=== PATIENT | male | born 1950 | race Caucasian/White ===

== ENCOUNTER 2017-04-24 00:53 | Emergency (ER) | payer MEDICARE, BC ==
--- NOTE | 2017-04-24 01:49 | EDM.PDOC ---
ED HPI GENERAL MEDICAL PROBLEM - General Chief Complaint: Back Pain or Injury Stated Complaint: BACK PAIN Time Seen by Provider: 04/24/17 01:25 Source of Information: Reports: Patient, Family History Limitations: Reports: No Limitations - History of Present Illness INITIAL COMMENTS - FREE TEXT/NARRATIVE: 66-year-old male with neuropathic type pain in the left flank for the past several weeks, a workup in the emergency room several days ago including a CT scan and labs was negative. Follow-up with his primary care provider led to another CT of the lumbar spine which was also reassuring. He has had extensive back surgery but it looks stable. He is on oxycodone, Flexeril, Valium, and gabapentin but tonight had a fiery stabbing pain in the left flank that was so intense he wasn't able to sleep and could hardly breathe. He's had no rash, fevers or chills, nausea or vomiting. He took a Percocet prior to coming into the emergency room and he is feeling better. No urinary symptoms. Onset: Sudden Location: Reports: Back Severity: Severe Associated Symptoms: Reports: No Other Symptoms Back Pain Score (Numeric/FACES): 7 - Related Data Allergies Allergy/AdvReac Type Severity Reaction Status Date / Time indomethacin [From Indocin] Allergy Cannot Verified 04/24/17 01:04 Remember indomethacin sodium Allergy Cannot Verified 04/24/17 01:04 [From Indocin] Remember methocarbamol [From Robaxin] Allergy Cannot Verified 04/24/17 01:04 Remember fluconazole [From Diflucan] AdvReac Nausea and Verified 04/24/17 01:04 Vomiting Home Meds: Home Meds Cyclobenzaprine [Flexeril] 10 mg PO TID PRN 09/20/13 [History] Naproxen [Naprosyn] 500 mg PO Q12HR 09/20/13 [History] Sildenafil [Viagra] 100 mg PO BEDTIME PRN 09/20/13 [History] Triamcinolone Acetonide [Kenalog 0.1% Crm] 15 gm .XX BID PRN 09/20/13 [History] amLODIPine [Norvasc] 5 mg PO DAILY 09/20/13 [History] Acetaminophen/oxyCODONE [Percocet 325-5 MG] 1 tab PO Q6H PRN 04/24/17 [History] Diazepam [Valium] 5 mg PO Q8H PRN 04/24/17 [History] Gabapentin [Neurontin] 600 mg PO TID 04/24/17 [History] Tamsulosin HCl [Tamsulosin HCl] 0.4 mg PO DAILY 04/24/17 [History] Valsartan [Valsartan] 40 mg PO DAILY 04/24/17 [History] Past Medical History HEENT History: Reports: Impaired Vision Cardiovascular History: Reports: Hypertension Genitourinary History: Reports: Prostate Disorder, Renal Calculus Musculoskeletal History: Reports: Fracture Psychiatric History: Reports: Anxiety Dermatologic History: Reports: Other (See Below) Other Dermatologic History: atiniccaratosis on scalp - Infectious Disease History Infectious Disease History: Reports: Chicken Pox, Influenza, Measles, Mumps, Shingles - Past Surgical History GI Surgical History: Reports: Appendectomy, Colonoscopy, Other (See Below) Other GI Surgeries/Procedures: partial colectomy Other Neurological Surgeries/Procedures: fusion of C3-C5. fusion of L2 to the sacrum Social & Family History - Tobacco Use Smoking Status *Q: Never Smoker Years of Tobacco use: 20 Used Tobacco, but Quit: Yes Month Tobacco Last Used: 05/1986 Second Hand Smoke Exposure: No - Caffeine Use Caffeine Use: Reports: Coffee - Alcohol Use Days Per Week of Alcohol Use: 0 - Recreational Drug Use Recreational Drug Use: No ED ROS GENERAL - Review of Systems Review Of Systems: See Below Constitutional: Denies: Fever, Chills, Malaise Respiratory: Reports: Pleuritic Chest Pain. Denies: Shortness of Breath Cardiovascular: Denies: Chest Pain GI/Abdominal: Denies: Abdominal Pain, Nausea, Vomiting Musculoskeletal: Reports: Back Pain Skin: Reports: No Symptoms Neurological: Denies: Paresthesia Psychiatric: Reports: No Symptoms ED EXAM, UPPER BACK/NECK PAIN - Physical Exam Exam: See Below Exam Limited By: No Limitations General Appearance: Alert, No Apparent Distress (Looks uncomfortable but not distressed) Head Exam: Atraumatic Cardiovascular/Respiratory: Regular Rate, Rhythm, No Respiratory Distress, Rales (Some bilateral basilar crackles are heard) Back Exam: Other (He has a very localized area of palpation tenderness at the inferior aspect of the left scapula and lateral. There is no bruising, crepitus , rash or other physical evidence of injury.) Course - Vital Signs Last Recorded V/S: Last Vital Signs Temp 97.3 F 04/24/17 01:11 Pulse 105 H 04/24/17 01:11 Resp 16 04/24/17 01:11 BP 145/99 H 04/24/17 01:12 Pulse Ox 95 04/24/17 01:11 - Re-Assessments/Exams Free Text/Narrative Re-Assessment/Exam: 04/24/17 01:49 The only treatment option left is a course of steroids. This patient has taken Medrol Dosepak safely in the past and would like to try a course. He can continue his other medications. Recheck next week if not improving satisfactorily. Departure - Departure Time of Disposition: 01:53 Disposition: Home, Self-Care 01 Condition: Good Clinical Impression: Acute left-sided thoracic back pain - Discharge Information Instructions: Back Pain, Adult, [id number] Referrals: Anderson Ferrari MD [Primary Care Provider] - Forms: ED Department Discharge Care Plan Goals: Continue your prescribed medications and add Medrol dosepak as prescribed. Increase activity as tolerated and consider rechecking early next week if not improving satisfactorily. Return sooner if worsening such as difficulty breathing or fever.
== END 2017-04-24 01:57 | disposition home or self-care (01) ==
LOC: JP.ED 00:53
DX: M54.6 Pain in thoracic spine (principal); I10 Essential (primary) hypertension; Z87.891 Personal history of nicotine dependence; Z79.899 Other long term (current) drug therapy; Z88.8 Allergy status to other drugs, medicaments and biological substances
CPT/HCPCS: 99283

== ENCOUNTER 2017-12-27 08:24 | Emergency (ER) | payer MEDICARE, BC ==
[2017-12-27] MEDS ORDERED: HYDROmorphone 1 MG/ML Syringe IM ONE (09:12)
[2017-12-27] MEDS ORDERED: methylPREDNISolone Sodium Succinate 125 MG/2 ML SDV IM ONE (09:12)
--- NOTE | 2017-12-27 09:18 | EDM.PDOC ---
ED HPI GENERAL MEDICAL PROBLEM - General Chief Complaint: Back Pain or Injury Stated Complaint: BACK PAIN Time Seen by Provider: 12/27/17 08:55 Source of Information: Reports: Patient, Family History Limitations: Reports: No Limitations - History of Present Illness INITIAL COMMENTS - FREE TEXT/NARRATIVE: 67-year-old male with chronic back pain, occasional acute exacerbations. He has fusion of L1-L5. Over the past 48 hours she's had a significant inflammatory increase over the left side. He has oxycodone but he uses it sparingly, he is looking more for acute pain control and a prescription for steroids. He has no radiculopathy. Onset: Gradual (Over the past 2-3 days) Severity: Moderate Associated Symptoms: Reports: No Other Symptoms lumbar spine Pain Score (Numeric/FACES): 7 - Related Data Allergies Allergy/AdvReac Type Severity Reaction Status Date / Time indomethacin [From Indocin] Allergy Cannot Verified 12/27/17 08:53 Remember indomethacin sodium Allergy Cannot Verified 12/27/17 08:53 [From Indocin] Remember methocarbamol [From Robaxin] Allergy Cannot Verified 12/27/17 08:53 Remember fluconazole [From Diflucan] AdvReac Nausea and Verified 12/27/17 08:53 Vomiting Home Meds: Home Meds Cyclobenzaprine [Flexeril] 10 mg PO TID PRN 09/20/13 [History] Naproxen [Naprosyn] 500 mg PO Q12HR 09/20/13 [History] Sildenafil [Viagra] 100 mg PO BEDTIME PRN 09/20/13 [History] Triamcinolone Acetonide [Kenalog 0.1% Crm] 15 gm .XX BID PRN 09/20/13 [History] amLODIPine [Norvasc] 5 mg PO DAILY 09/20/13 [History] Acetaminophen/oxyCODONE [Percocet 325-5 MG] 1 tab PO Q6H PRN 04/24/17 [History] Diazepam [Valium] 5 mg PO Q8H PRN 04/24/17 [History] Tamsulosin HCl 0.4 mg PO DAILY 04/24/17 [History] Aspirin 81 mg PO DAILY 12/27/17 [History] Losartan [Cozaar] 50 mg PO DAILY 12/27/17 [History] atorvaSTATin [Lipitor] 20 mg PO BEDTIME 12/27/17 [History] metFORMIN [Glucophage] 1,000 mg PO BIDMEALS 12/27/17 [History] Past Medical History HEENT History: Reports: Impaired Vision Cardiovascular History: Reports: Hypertension Genitourinary History: Reports: Prostate Disorder, Renal Calculus Musculoskeletal History: Reports: Fracture Psychiatric History: Reports: Anxiety Endocrine/Metabolic History: Reports: Diabetes, Type II Dermatologic History: Reports: Other (See Below) Other Dermatologic History: atiniccaratosis on scalp - Infectious Disease History Infectious Disease History: Reports: Chicken Pox, Influenza, Measles, Mumps, Shingles - Past Surgical History Cardiovascular Surgical History: Reports: None GI Surgical History: Reports: Appendectomy, Colonoscopy, Other (See Below) Other GI Surgeries/Procedures: partial colectomy Other Neurological Surgeries/Procedures: fusion of C3-C5. fusion of L2 to the sacrum Musculoskeletal Surgical History: Reports: Other (See Below) Other Musculoskeletal Surgeries/Procedures:: back and neck fusion Social & Family History - Tobacco Use Smoking Status *Q: Never Smoker - Caffeine Use Caffeine Use: Reports: Coffee - Recreational Drug Use Recreational Drug Use: No ED ROS GENERAL - Review of Systems Review Of Systems: See Below Constitutional: Denies: Fever, Chills Respiratory: Denies: Shortness of Breath GI/Abdominal: Denies: Nausea, Stool Incontinence, Vomiting : Reports: No Symptoms Skin: Denies: Rash Neurological: Denies: Paresthesia ED EXAM,LOWER BACK PAIN/INJURY - Physical Exam Exam: See Below Exam Limited By: No Limitations General Appearance: Alert, No Apparent Distress (Moving very slowly due to low back pain) Head: Atraumatic Respiratory/Chest: No Respiratory Distress Back Exam: Other (Well-healed surgical scar mid back. He has palpation tenderness along the paralumbar area of L1-L3 with increased pain with rotation against resistance especially to the left. No significant straight leg raising symptoms or radiculopathy.) Course - Vital Signs Last Recorded V/S: Last Vital Signs Temp 96 F 12/27/17 08:50 Pulse 94 12/27/17 08:50 Resp 14 12/27/17 08:50 BP 123/90 12/27/17 08:50 Pulse Ox 97 12/27/17 08:50 - Orders/Labs/Meds Meds: Medications Discontinued Medications Generic Name Dose Route Start Last Admin Trade Name Freq PRN Reason Stop Dose Admin Hydromorphone HCl 1 mg 12/27/17 09:12 12/27/17 09:26 Dilaudid IM 12/27/17 09:13 1 mg ONETIME ONE Administration Methylprednisolone Sodium Succinate 125 mg 12/27/17 09:12 12/27/17 09:26 Solu-Medrol IM 12/27/17 09:13 125 mg ONETIME ONE Administration - Re-Assessments/Exams Free Text/Narrative Re-Assessment/Exam: 12/27/17 09:16 Patient has an acute exacerbation of chronic back pain. He was given 1 mg of IM Dilaudid, iron 25 mg of IM Solu-Medrol and started on 60 mg of prednisone daily. He can recheck in the next 24-48 hours to set up an epidural injection which has worked well for him in the past. Departure - Departure Time of Disposition: 09:55 Disposition: Home, Self-Care 01 Condition: Good Clinical Impression: Acute exacerbation of chronic low back pain - Discharge Information Instructions: Back Pain, Adult Referrals: Anderson Ferrari MD [Primary Care Provider] - Forms: ED Department Discharge Care Plan Goals: Take 6 pills of prednisone daily with your first meal over the next 5 days. Start on Thursday. Call for an appointment for an epidural in the next 1-2 days.
== END 2017-12-27 09:56 | disposition home or self-care (01) ==
LOC: JP.ED 08:24
DX: M54.5 Low back pain (principal); G89.29 Other chronic pain; I10 Essential (primary) hypertension; E11.9 Type 2 diabetes mellitus without complications; Z79.82 Long term (current) use of aspirin; Z79.84 Long term (current) use of oral hypoglycemic drugs; Z79.899 Other long term (current) drug therapy; Z88.8 Allergy status to other drugs, medicaments and biological substances
CPT/HCPCS: 96372; 99283; J1170; J2930

== ENCOUNTER 2019-09-24 16:04 | Emergency (ER) | payer MEDICARE, BC ==
--- NOTE | 2019-09-24 16:45 | EDM.PDOC ---
ED HPI GENERAL MEDICAL PROBLEM - General Chief Complaint: Lower Extremity Injury/Pain Stated Complaint: PAIN IN L FOOT/HEEL Time Seen by Provider: 09/24/19 16:35 Source of Information: Reports: Patient History Limitations: Reports: No Limitations - History of Present Illness INITIAL COMMENTS - FREE TEXT/NARRATIVE: 68-year-old male with worsening left heel pain for the past 3 days, no trauma. No previous pain similar to this. No redness or swelling. Onset: Gradual Duration: Day(s): (3 to 4 days) Location: Reports: Lower Extremity, Left Associated Symptoms: Reports: No Other Symptoms Left Foot Pain Score (Numeric/FACES): 8 - Related Data Allergies Allergy/AdvReac Type Severity Reaction Status Date / Time indomethacin [From Indocin] Allergy Cannot Verified 09/24/19 16:24 Remember indomethacin sodium Allergy Cannot Verified 09/24/19 16:24 [From Indocin] Remember methocarbamol [From Robaxin] Allergy Cannot Verified 09/24/19 16:24 Remember fluconazole [From Diflucan] AdvReac Nausea and Verified 09/24/19 16:24 Vomiting Home Meds: Home Meds Cyclobenzaprine [Flexeril] 10 mg PO TID PRN 09/20/13 [History] Naproxen [Naprosyn] 500 mg PO Q12HR 09/20/13 [History] Sildenafil [Viagra] 100 mg PO BEDTIME PRN 09/20/13 [History] Triamcinolone Acetonide [Kenalog 0.1% Crm] 15 gm .XX BID PRN 09/20/13 [History] amLODIPine [Norvasc] 5 mg PO DAILY 09/20/13 [History] Acetaminophen/oxyCODONE [Percocet 325-5 MG] 1 tab PO Q6H PRN 04/24/17 [History] Diazepam [Valium] 5 mg PO Q8H PRN 04/24/17 [History] Tamsulosin HCl 0.4 mg PO DAILY 04/24/17 [History] Aspirin 81 mg PO DAILY 12/27/17 [History] Losartan [Cozaar] 50 mg PO DAILY 12/27/17 [History] atorvaSTATin [Lipitor] 20 mg PO BEDTIME 12/27/17 [History] metFORMIN [Glucophage] 1,000 mg PO BIDMEALS 12/27/17 [History] Past Medical History HEENT History: Reports: Impaired Vision Cardiovascular History: Reports: Hypertension Genitourinary History: Reports: Prostate Disorder, Renal Calculus Musculoskeletal History: Reports: Fracture Psychiatric History: Reports: Anxiety Endocrine/Metabolic History: Reports: Diabetes, Type II Dermatologic History: Reports: Other (See Below) Other Dermatologic History: atiniccaratosis on scalp - Infectious Disease History Infectious Disease History: Reports: Chicken Pox, Measles, Mumps - Past Surgical History Cardiovascular Surgical History: Reports: None GI Surgical History: Reports: Appendectomy, Colonoscopy, Other (See Below) Other GI Surgeries/Procedures: partial colectomy Other Neurological Surgeries/Procedures: fusion of C3-C5. fusion of L2 to the sacrum Musculoskeletal Surgical History: Reports: Other (See Below) Other Musculoskeletal Surgeries/Procedures:: back and neck fusion Social & Family History - Tobacco Use Smoking Status *Q: Former Smoker Years of Tobacco use: 20 Packs/Tins Daily: 2 Used Tobacco, but Quit: Yes Month/Year Tobacco Last Used: 30 years ago Second Hand Smoke Exposure: No - Caffeine Use Caffeine Use: Reports: Coffee, Tea - Alcohol Use Days Per Week of Alcohol Use: 0 - Recreational Drug Use Recreational Drug Use: No Review of Systems - Review of Systems Review Of Systems: See Below Respiratory: Reports: No Symptoms Cardiovascular: Reports: No Symptoms Musculoskeletal: Reports: Other (Isolated left heel pain only, no other joint complaints) Skin: Reports: No Symptoms Neurological: Reports: No Symptoms ED EXAM, GENERAL - Physical Exam Exam: See Below Exam Limited By: No Limitations General Appearance: Alert, No Apparent Distress Head: Atraumatic Respiratory/Chest: No Respiratory Distress Extremities: Other (Exam is limited to the left foot. He has no tenderness or swelling around the ankle. The forefoot and toes are nontender and normal. Palpation of the inferior aspect of the calcaneus especially proximally it is very tender to palpation and lateral compression) Neurological: Alert, Oriented Psychiatric: Normal Affect, Normal Mood Skin Exam: Warm, Dry Course - Vital Signs Last Recorded V/S: Last Vital Signs Temp 97.4 F 09/24/19 16:31 Pulse 74 09/24/19 16:31 Resp 16 09/24/19 16:31 BP 150/99 H 09/24/19 16:31 Pulse Ox 95 09/24/19 16:31 - Orders/Labs/Meds Orders: Active Orders 24 hr Category Date Time Status Calcaneous Lt [CR] Stat Exams 09/24/19 16:42 Taken - Re-Assessments/Exams Free Text/Narrative Re-Assessment/Exam: 09/24/19 16:45 An x-ray of the left calcaneus was obtained. 09/24/19 17:11 Heel x-ray is negative showing no spur or arthritis. No calcifications in the tendons. A 3 inch Bogdan wrap was applied to the foot, he was supplied with crutches and will rest the heel for the next 2 to 3 days. Elevation and ice and increase naproxen to twice daily. Recheck in 3 to 4 days with podiatry if not improving. Departure - Departure Time of Disposition: 17:26 Disposition: Home, Self-Care 01 Clinical Impression: Calcaneal bursitis, left - Discharge Information Instructions: Bursitis, [id number] Referrals: PCP,None [Primary Care Provider] - Forms: ED Department Discharge Care Plan Goals: Rest the left heel for the next couple of days with crutches and support with Bogdan wrap. Elevate and ice may be beneficial, and increase naproxen to twice daily. Gradually increase activity in 3 to 4 days and if not improving satisfactorily recheck with orthopedics or podiatry at the clinic. Sepsis Event Note - Evaluation Sepsis Screening Result: No Definite Risk - Focused Exam Vital Signs: Vital Signs Temp Pulse Resp BP Pulse Ox 09/24/19 16:31 97.4 F 74 16 150/99 H 95 09/24/19 16:16 97.4 F 74 16 150/99 H 95 Date Exam was Performed: 09/24/19 Time Exam was Performed: 17:50 - My Orders Last 24 Hours: My Active Orders 09/24/19 16:42 Calcaneous Lt [CR] Stat - Assessment/Plan Last 24 Hours: My Active Orders 09/24/19 16:42 Calcaneous Lt [CR] Stat
--- NOTE | 2019-09-27 09:28 | CR ---
Calcaneous Lt CLINICAL HISTORY: Pain COMPARISON: None FINDINGS: Bone alignment is anatomic. Bone mineralization is adequate. No acute fracture identified. Surrounding soft tissues are intact. There is some calcification in the plantar fascia posteriorly. There is also some calcification at the Achilles insertion. IMPRESSION: No acute process.
== END 2019-09-24 17:26 | disposition home or self-care (01) ==
LOC: JP.ED 16:04
DX: M77.52 Other enthesopathy of left foot and ankle (principal); I10 Essential (primary) hypertension; E11.9 Type 2 diabetes mellitus without complications; Z88.8 Allergy status to other drugs, medicaments and biological substances; Z79.899 Other long term (current) drug therapy; Z79.82 Long term (current) use of aspirin; Z79.84 Long term (current) use of oral hypoglycemic drugs; Z87.891 Personal history of nicotine dependence
CPT/HCPCS: 73650-26-LT; 73650-LT; 99282; 99283-25

== ENCOUNTER 2019-10-09 08:59 | Emergency (ER) | payer MEDICARE, BC ==
--- NOTE | 2019-10-09 09:41 | EDM.PDOC ---
ED HPI GENERAL MEDICAL PROBLEM - General Chief Complaint: Flank Pain Stated Complaint: LEFT SIDED LOW BACK PAIN Time Seen by Provider: 10/09/19 09:30 Source of Information: Reports: Patient History Limitations: Reports: No Limitations - History of Present Illness INITIAL COMMENTS - FREE TEXT/NARRATIVE: 68-year-old male with left flank pain for the past 48 hours. There is a possibility of hematuria as well, however he does not have any dysuria, urinary frequency, fever or cough. The pain is worse when laying on his left side. It is become fairly intense and localized to the left flank and he is going on vacation in a few days and he and his want to know if he has an infection or a kidney stone. Apparently he has a history of asymptomatic kidney stones. Onset: Sudden (Symptoms started fairly suddenly 2 days ago) Associated Symptoms: Denies: Chest Pain, Cough, Fever/Chills, Malaise, Nausea/ Vomiting Treatments SIGNAL HELPER: Denies: Breathing Treatments Left Flank Pain Score (Numeric/FACES): 7 - Related Data Allergies Allergy/AdvReac Type Severity Reaction Status Date / Time indomethacin [From Indocin] Allergy Cannot Verified 10/09/19 09:17 Remember indomethacin sodium Allergy Cannot Verified 10/09/19 09:17 [From Indocin] Remember methocarbamol [From Robaxin] Allergy Cannot Verified 10/09/19 09:17 Remember fluconazole [From Diflucan] AdvReac Nausea and Verified 10/09/19 09:17 Vomiting Home Meds: Home Meds Cyclobenzaprine [Flexeril] 10 mg PO TID PRN 09/20/13 [History] Naproxen [Naprosyn] 500 mg PO Q12HR 09/20/13 [History] Sildenafil [Viagra] 100 mg PO BEDTIME PRN 09/20/13 [History] Triamcinolone Acetonide [Kenalog 0.1% Crm] 15 gm .XX BID PRN 09/20/13 [History] amLODIPine [Norvasc] 5 mg PO DAILY 09/20/13 [History] Acetaminophen/oxyCODONE [Percocet 325-5 MG] 1 tab PO Q6H PRN 04/24/17 [History] Diazepam [Valium] 5 mg PO Q8H PRN 04/24/17 [History] Tamsulosin HCl 0.4 mg PO DAILY 04/24/17 [History] Aspirin 81 mg PO DAILY 12/27/17 [History] Losartan [Cozaar] 50 mg PO DAILY 12/27/17 [History] atorvaSTATin [Lipitor] 20 mg PO BEDTIME 12/27/17 [History] metFORMIN [Glucophage] 1,000 mg PO BIDMEALS 12/27/17 [History] Past Medical History HEENT History: Reports: Impaired Vision Cardiovascular History: Reports: Hypertension Genitourinary History: Reports: Prostate Disorder, Renal Calculus Musculoskeletal History: Reports: Fracture Psychiatric History: Reports: Anxiety Endocrine/Metabolic History: Reports: Diabetes, Type II Dermatologic History: Reports: Other (See Below) Other Dermatologic History: atiniccaratosis on scalp - Infectious Disease History Infectious Disease History: Reports: Chicken Pox, Measles, Mumps - Past Surgical History Cardiovascular Surgical History: Reports: None GI Surgical History: Reports: Appendectomy, Colonoscopy, Other (See Below) Other GI Surgeries/Procedures: partial colectomy Other Neurological Surgeries/Procedures: fusion of C3-C5. fusion of L2 to the sacrum Musculoskeletal Surgical History: Reports: Other (See Below) Other Musculoskeletal Surgeries/Procedures:: back and neck fusion Social & Family History - Tobacco Use Smoking Status *Q: Former Smoker Used Tobacco, but Quit: Yes Month/Year Tobacco Last Used: over 30 years - Caffeine Use Caffeine Use: Reports: Coffee - Recreational Drug Use Recreational Drug Use: No ED ROS GENERAL - Review of Systems Review Of Systems: See Below Constitutional: Denies: Fever, Chills, Malaise HEENT: Reports: No Symptoms Respiratory: Denies: Shortness of Breath Cardiovascular: Denies: Chest Pain GI/Abdominal: Denies: Abdominal Pain, Nausea, Vomiting : Reports: Flank Pain, Hematuria (Patient's , a retired RN, 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 Denies: Dysuria, Frequency Musculoskeletal: Reports: Other (Still having some lingering left heel pain from bursitis but markedly improved) Skin: Reports: No Symptoms Neurological: Denies: Headache ED EXAM, GENERAL - Physical Exam Exam: See Below Exam Limited By: No Limitations General Appearance: Alert, No Apparent Distress Head: Atraumatic Respiratory/Chest: No Respiratory Distress, Lungs Clear Cardiovascular: Regular Rate, Rhythm GI/Abdominal: Soft, Non-Tender Back Exam: No: CVA Tenderness (R), CVA Tenderness (L) Extremities: No: Pedal Edema Neurological: Alert, Oriented Psychiatric: Normal Affect, Normal Mood Course - Vital Signs Last Recorded V/S: Last Vital Signs Temp 97.5 F 10/09/19 09:15 Pulse 89 10/09/19 09:15 Resp 18 10/09/19 09:15 BP 143/91 H 10/09/19 09:15 Pulse Ox 98 10/09/19 09:15 - Orders/Labs/Meds Labs: Laboratory Tests 10/09/19 Range/Units 09:26 Urine Color Yellow (YELLOW) Urine Appearance Slightly cloudy A (CLEAR) Urine pH 7.0 (5.0-8.0) Ur Specific [place] 1.025 (1.008-1.030) Urine Protein Negative (NEGATIVE) mg/dL Urine Glucose (UA) Negative (NEGATIVE) mg/dL Urine Ketones Negative (NEGATIVE) mg/dL Urine Occult Blood Trace-intact H (NEGATIVE) Urine Nitrite Negative (NEGATIVE) Urine Bilirubin Negative (NEGATIVE) Urine Urobilinogen 0.2 (0.2-1.0) EU/dL Ur Leukocyte Esterase Negative (NEGATIVE) Urine RBC 0-5 (0-5) Urine WBC 0-5 (0-5) Ur Epithelial Cells Few Amorphous Sediment Not seen Urine Bacteria Few Urine Mucus Not seen - Re-Assessments/Exams Free Text/Narrative Re-Assessment/Exam: 10/09/19 09:41 A UA was obtained, and a CT of the abdomen pelvis without contrast was obtained. 10/09/19 10:02 UA was negative, CT scan showed no acute ureteral stones or hydronephrosis. Patient will continue his regular medications and increase activity as tolerated. 10/09/19 10:20 IMPRESSION: 1. Nonobstructing right lower pole renal calculi. No hydronephrosis. Left kidney is unremarkable. 2. Large amount of stool throughout the colon. Departure - Departure Time of Disposition: 10:14 Disposition: Home, Self-Care 01 Clinical Impression: Acute thoracic back pain Qualifiers: Back pain laterality: left Qualified Code(s): M54.6 - Pain in thoracic spine - Discharge Information Instructions: Flank Pain, Adult, [id number] Referrals: Rebecca Harrison MD [Primary Care Provider] - Forms: ED Department Discharge Care Plan Goals: Continue your current medications and increase activity as tolerated. Alternating ice and heat to the painful area may be beneficial. Recheck if worsening such as development of fever, nausea vomiting, or rash over the painful area. Sepsis Event Note - Evaluation Sepsis Screening Result: No Definite Risk - Focused Exam Vital Signs: Vital Signs Temp Pulse Resp BP Pulse Ox 10/09/19 09:15 97.5 F 89 18 143/91 H 98 Date Exam was Performed: 10/09/19 Time Exam was Performed: 10:19
--- NOTE | 2019-10-09 10:17 | CRLCT ---
INDICATION: Left flank pain. Noncontrast CT abdomen and pelvis coronal sagittal reformat images obtained Findings: Heart size is normal. No pericardial effusion. Right infrahilar calcified lymph node subpleural 5 mm right lower lobe pulmonary nodule series 2 image 9. Basilar atelectasis. Small hiatal hernia. Splenic granulomas. Unenhanced liver pancreas adrenal glands are unremarkable. No abdominal aortic aneurysm. Cholelithiasis. Sigmoid anastomosis. Minimal diverticulosis. Large amount of stool throughout the colon. No left renal calculi. Small nonobstructing right inferior renal calculi. No hydronephrosis. Urinary bladder decompressed. No findings for appendicitis. Possible appendectomy change. Prostate gland is not enlarged. Fat containing left inguinal hernia. Lumbar fusion change. No suspicious bony lesions. IMPRESSION: 1. Nonobstructing right lower pole renal calculi. No hydronephrosis. Left kidney is unremarkable. 2. Large amount of stool throughout the colon. Please note that all CT scans at this facility use dose modulation, iterative reconstruction, and/or weight-based dosing when appropriate to reduce radiation dose to as low as reasonably achievable. Dictated by Porsha Nguyen MD @ Oct 09 2019 10:08AM Signed by Dr. Porsha Nguyen @ Oct 09 2019 10:16AM
== END 2019-10-09 10:14 | disposition home or self-care (01) ==
LOC: JP.ED 08:59
DX: M54.6 Pain in thoracic spine (principal); I10 Essential (primary) hypertension; E11.9 Type 2 diabetes mellitus without complications; Z79.82 Long term (current) use of aspirin; Z79.84 Long term (current) use of oral hypoglycemic drugs; Z79.899 Other long term (current) drug therapy; Z87.891 Personal history of nicotine dependence; Z88.8 Allergy status to other drugs, medicaments and biological substances
CPT/HCPCS: 74176; 81001; 99282; 99284-25

== ENCOUNTER 2023-11-24 06:25 | Day surgery (SDC) | payer MEDICARE, BC ==
[2023-11-24] MEDS ORDERED: Propofol 200 MG/20 ML SDV ONE ×2 (07:03→08:00)
[2023-11-24] MEDS ORDERED: fentaNYL 50 MCG/ML SDV ONE (07:04)
[2023-11-24] MEDS: Sodium Chloride 0.9% 1,000 ML IV SCH (07:06)
== END 2023-11-24 09:15 | disposition home or self-care (01) ==
LOC: JP.SDS 06:25
PROVIDERS: ATTEND Surgery
DX: Z12.11 Encounter for screening for malignant neoplasm of colon (principal); D12.2 Benign neoplasm of ascending colon; I10 Essential (primary) hypertension; E11.9 Type 2 diabetes mellitus without complications
CPT/HCPCS: 45380; J2704; J3010; J7030